=== PATIENT | female | born 1970 ===

== ENCOUNTER 2017-09-24 11:04 | Emergency (ER) | payer OTHER ==
[~2017-09-24] VITALS: Ht 157.5 cm; Wt 84.8 kg
[~2017-09-24 11:04] MED LIST: BENA25TA8 PO; CARB100C; CLON0.5T PO
[2017-09-24 11:20] VITALS: BP 133/78; PULSE 83; RESP 16; TEMP 99.1; O2SAT 97
[2017-09-24] MEDS ORDERED: BUSP10TA PO (11:34)
[2017-09-24] MEDS ORDERED: TIZA4CAP3 PO (11:34)
[2017-09-24] MEDS ORDERED: PRED20 PO (11:34)
--- NOTE | 2017-09-24 12:17 | PD ---
HPI Chief Complaint: Back/ Neck Pain or Injury Time Seen by Provider: 12:00 Travel History International Travel<30 days: No Contact w/Intl Traveler<30days: No Traveled to known affect area: No History of Present Illness HPI 47-year-old female here with right low back pain radiating down into the leg. Patient has had a x-ray and MRI done by her PCP. She was referred to physical therapy, pain management for spinal injections. She reports the pain has increased over the last 3 days worsening today while at physical therapy. She denies fever, chills, saddle anesthesia, incontinence, paresthesia or weakness of the lower extremity. Pain is unrelieved by her current muscle relaxer. Symptom severity is moderate. No aggravating or alleviating factors. PFSH Past Medical History Anxiety: Yes Musculoskeletal: Yes (CHRONIC LOW BACK PAIN) Influenza Vaccination: Yes ?: Not LMP: 09/22/17 Past Surgical History Section: Yes Social History Alcohol Use: No Tobacco Use: No Substance Use: No Allergies-Medications (Allergen,Severity, Reaction): Coded Allergies: cefprozil (Unverified Allergy, Severe, Swelling, 09/24/17) RASH penicillin G (Unverified Allergy, Severe, Rash, 09/24/17) Reported Meds & Prescriptions Reported Meds & Active Scripts Active Robaxin (Methocarbamol) 750 Mg Tab 750 Mg PO TID Ultram (Tramadol HCl) 50 Mg Tab 50 Mg PO Q6H PRN Reported Buspirone (Buspirone HCl) 10 Mg Tab 10 Mg PO TID Tizanidine (Tizanidine HCl) 4 Mg Cap 4 Mg PO HS Prednisone 20 Mg Tab 40 Mg PO DAILY Take 40 mg (2 tablets) daily for 5 days Review of Systems Except as stated in HPI: all other systems reviewed are Neg General / Constitutional: No: Fever Gastrointestinal: No: Abdominal Pain Genitourinary: No: Dysuria Physical Exam Narrative GENERAL: Alert female. Patient in mild distress and appears uncomfortable lying on the stretcher SKIN: Warm and dry. HEAD: Atraumatic. Normocephalic. EYES: Pupils equal and round. No scleral icterus. No injection or drainage. ENT: No nasal bleeding or discharge. Mucous membranes pink and moist. NECK: Trachea midline. No JVD. CARDIOVASCULAR: Regular rate and rhythm. RESPIRATORY: No accessory muscle use. Clear to auscultation. Breath sounds equal bilaterally. GASTROINTESTINAL: Abdomen soft, non-tender, nondistended. Hepatic and splenic margins not palpable. MUSCULOSKELETAL: Extremities without clubbing, cyanosis, or edema. No obvious deformities. BACK: No spinal tenderness. Tenderness to the right sacroiliac region. NEUROLOGICAL: Awake and alert.5 out of 5 strength in lower extremities. Dorsiflex and plantarflex intact. 2+ DTRs. Normal sensation. PSYCHIATRIC: Appropriate mood and affect; insight and judgment normal. Data Data Last Documented VS Vital Signs Date Time Temp Pulse Resp B/P (MAP) Pulse Ox O2 Delivery O2 Flow Rate FiO2 09/24/17 11:20 99.1 83 16 133/78 (96) 97 Orders Orders Ed Discharge Order (09/24/17 12:19) Ketorolac Inj (Toradol Inj) (09/24/17 12:30) [facility] Medical Decision Making Medical Screen Exam Complete: Yes Emergency Medical Condition: Yes Differential Diagnosis Sciatica, lumbar strain, herniated disc Narrative Course 47-year-old female here with right low back pain radiating down into the leg. Patient has had a x-ray and MRI done by her PCP. She was referred to physical therapy, pain management for spinal injections. She has a normal neurologic exam. No fever, saddle anesthesia, incontinence, weakness of the extremities. She is currently on steroids with no relief. Patient was given Toradol IM with symptom improvement. She'll be discharged home with muscle relaxer and Ultram. Diagnosis Primary Impression: Sciatica Qualified Codes: M54.31 - Sciatica, right side Referrals: Pain Management Additional Instructions: Make an appointment for follow-up with pain management to discuss possible injections for pain management. Take medications as prescribed. Avoid heavy lifting or strenuous activity. Use ice and/or heat for comfort Scripts Methocarbamol (Robaxin) 750 Mg Tab 750 MG PO TID for Muscle Spasm, #15 TAB 0 Refills Prov: Lorena Vinson 09/24/17 Tramadol (Ultram) 50 Mg Tab 50 MG PO Q6H Y for PAIN, #12 TAB 0 Refills Prov: Cayetano Alas MD 09/24/17 Disposition: 01 DISCHARGE HOME Condition: Stable Lorena Vinson Sep 24, 2017 12:17
[2017-09-24] MEDS ORDERED: TRAM50 PO (12:18)
[2017-09-24] MEDS ORDERED: KETOROLAC TROMETHAMINE 60 MG/2 ML (IM) VIAL IM ONE (12:30)
[2017-09-24] MEDS ORDERED: ROBA750T PO (12:32)
== END 2017-09-24 12:41 | disposition home or self-care (01) ==
LOC: PHEFT 11:04
DX: M54.31 Sciatica, right side (principal); F41.9 Anxiety disorder, unspecified; Z79.899 Other long term (current) drug therapy; Z88.0 Allergy status to penicillin; Z88.8 Allergy status to other drugs, medicaments and biological substances
CPT/HCPCS: 96372; 99284; J1885